=== PATIENT | male | born 1960 | race Native Hawaiian/Other Pacific Islander ===

== ENCOUNTER 2017-06-14 08:13 | Emergency (ER) | payer OTHER ==
[~2017-06-14] VITALS: Ht 175.3 cm; Wt 136.1 kg
[2017-06-14 08:18] VITALS: TEMP 98.6
[2017-06-14 09:35] LABS: PLATELET COUNT 559 K/uL (142-355)
[2017-06-14 10:55] VITALS: BP 170/78
== END 2017-06-14 10:55 | disposition home or self-care (01) ==
LOC: ED 08:13
PROVIDERS: Family Medicine
DX: N43.3 Hydrocele, unspecified (principal); I10 Essential (primary) hypertension; E11.65 Type 2 diabetes mellitus with hyperglycemia
CPT/HCPCS: 36415; 80053; 81000; 85027; 96374; 96375; 99284; J1885; J2405; J3490

== ENCOUNTER 2018-03-25 10:02 | Emergency (ER) | payer OTHER ==
[~2018-03-25] VITALS: Ht 175.3 cm; Wt 106.6 kg
[2018-03-25] MEDS ORDERED: HYDROCHLOROT12.5 M1 PO (11:04)
[2018-03-25] MEDS ORDERED: METO50TA27 PO (11:04)
[2018-03-25 11:09] LABS: PLATELET COUNT 853 K/uL (142-355)
[2018-03-25 13:45] VITALS: BP 156/81; TEMP 98.7
[2018-03-25 13:45] LABS: PLATELET COUNT 591 K/uL (142-355)
== END 2018-03-25 13:45 | disposition home or self-care (01) ==
LOC: ED 10:02
DX: R51 Headache (principal); I10 Essential (primary) hypertension; H70.13 Chronic mastoiditis, bilateral; I44.4 Left anterior fascicular block; I45.81 Long QT syndrome
CPT/HCPCS: 36415; 80053; 81000; 85027; 93005; 99283

== ENCOUNTER 2018-07-15 08:03 | Outpatient (CLI) | payer OTHER ==
[~2018-07-15 08:03] MED LIST: HYDROCHLOROT12.5 M1 PO; METO50TA27 PO
[2018-07-15 08:28] LABS: PLATELET COUNT 478 K/uL (142-355)
== END 2018-07-15 20:19 | disposition home or self-care (01) ==
LOC: LABW 08:03
PROVIDERS: Internal Medicine
DX: I12.9 Hypertensive chronic kidney disease with stage 1 through stage 4 chronic kidney disease, or unspecified chronic kidney disease (principal); N18.3 Chronic kidney disease, stage 3 (moderate)
CPT/HCPCS: 36415; 80048; 81000; 82040; 82570; 83883; 84100; 84155; 84550; 85027; 86038

== ENCOUNTER → 2018-08-26 | Outpatient (CLI) | payer OTHER ==
[2018-08-26 08:28] LABS: POTASSIUM 4.8 mmol/L (3.6-5.2)
[2018-08-26 08:30] LABS: PLATELET COUNT 463 K/uL (142-355)
== END ==
LOC: LABW 07:13
PROVIDERS: Physician Assistant
DX: N17.8 Other acute kidney failure (principal); N18.3 Chronic kidney disease, stage 3 (moderate)
CPT/HCPCS: 36415; 80048; 82040; 82570; 84100; 84155; 84550; 85027; 86038

== ENCOUNTER 2020-03-08 09:02 | Outpatient (CLI) | payer OTHER ==
[2020-03-08 09:37] LABS: POTASSIUM 4.6 mmol/L (3.6-5.2)
== END 2020-03-08 21:37 | disposition home or self-care (01) ==
LOC: LABW 09:02
PROVIDERS: ATTEND Nurse Practitioner Family
DX: E87.5 Hyperkalemia (principal)
CPT/HCPCS: 36415; 80048; 82040; 84100; 84550

== ENCOUNTER 2020-03-23 08:40 | Outpatient (CLI) | payer OTHER | END 2020-03-23 21:40 | disposition home or self-care (01) | LOC: US 08:40 | PROVIDERS: ATTEND Internal Medicine | DX: N18.4 Chronic kidney disease, stage 4 (severe) (principal); N17.9 Acute kidney failure, unspecified ==

== ENCOUNTER 2020-05-17 09:27 | Outpatient (CLI) | payer OTHER ==
[2020-05-17 09:43] LABS: PLATELET COUNT 367 K/uL (142-355)
[2020-05-17 09:48] LABS: POTASSIUM 5.2 mmol/L (3.6-5.2)
== END 2020-05-17 19:19 | disposition home or self-care (01) ==
LOC: LABW 09:27
PROVIDERS: ATTEND Internal Medicine
DX: I12.9 Hypertensive chronic kidney disease with stage 1 through stage 4 chronic kidney disease, or unspecified chronic kidney disease (principal); N18.9 Chronic kidney disease, unspecified
CPT/HCPCS: 36415; 80069; 85027

== ENCOUNTER 2020-08-05 08:05 | Outpatient (CLI) | payer OTHER ==
[2020-08-05 08:22] LABS: PLATELET COUNT 471 K/uL (142-355)
[2020-08-05 08:31] LABS: POTASSIUM 5.1 mmol/L (3.6-5.2)
== END 2020-08-05 22:00 | disposition home or self-care (01) ==
LOC: LABW 08:05
PROVIDERS: ATTEND Internal Medicine
DX: I12.9 Hypertensive chronic kidney disease with stage 1 through stage 4 chronic kidney disease, or unspecified chronic kidney disease (principal); E11.9 Type 2 diabetes mellitus without complications; N20.0 Calculus of kidney; E78.2 Mixed hyperlipidemia; N18.32 Chronic kidney disease, stage 3b
CPT/HCPCS: 36415; 80061; 80069; 83036; 85027

== ENCOUNTER 2020-08-17 07:59 | Outpatient (CLI) | payer OTHER ==
[2020-08-17 08:50] LABS: PLATELET COUNT 424 K/uL (142-355)
[2020-08-17 09:52] LABS: POTASSIUM 6.2 mmol/L (3.6-5.2)
== END 2020-08-17 22:39 | disposition home or self-care (01) ==
LOC: LABW 07:59
PROVIDERS: ATTEND Family Medicine
DX: E11.9 Type 2 diabetes mellitus without complications (principal); I10 Essential (primary) hypertension; E78.49 Other hyperlipidemia
CPT/HCPCS: 36415; 80053; 80061; 82043; 82272; 83036; 84153; 85027

== ENCOUNTER 2020-08-19 12:29 | Outpatient (CLI) | payer OTHER ==
[2020-08-19 12:56] LABS: POTASSIUM 5.8 mmol/L (3.6-5.2)
== END 2020-08-19 22:46 | disposition home or self-care (01) ==
LOC: LABW 12:29
PROVIDERS: ATTEND Family Medicine
DX: E87.5 Hyperkalemia (principal)
CPT/HCPCS: 36415; 80048

== ENCOUNTER 2020-10-29 11:19 | Outpatient (CLI) | payer OTHER | END 2020-10-29 19:06 | disposition home or self-care (01) | LOC: RAD 11:19 | PROVIDERS: ATTEND Nurse Practitioner Family | DX: J15.6 Pneumonia due to other Gram-negative bacteria (principal) ==

== ENCOUNTER 2021-02-25 08:55 | Outpatient (CLI) | payer OTHER | END 2021-02-25 19:26 | disposition home or self-care (01) | LOC: RAD 08:55 | PROVIDERS: ATTEND Internal Medicine | DX: H91.93 Unspecified hearing loss, bilateral (principal); I25.2 Old myocardial infarction; N18.9 Chronic kidney disease, unspecified; E11.9 Type 2 diabetes mellitus without complications; E78.00 Pure hypercholesterolemia, unspecified; M25.562 Pain in left knee; M25.561 Pain in right knee; I12.9 Hypertensive chronic kidney disease with stage 1 through stage 4 chronic kidney disease, or unspecified chronic kidney disease ==

== ENCOUNTER 2021-07-19 15:43 | Outpatient (CLI) | payer OTHER | END 2021-07-19 19:12 | disposition home or self-care (01) | LOC: LAB 15:43 | PROVIDERS: ATTEND Nurse Practitioner Family | DX: E87.5 Hyperkalemia (principal) | CPT/HCPCS: 84132 ==

== ENCOUNTER 2021-10-02 13:36 | Inpatient (IN) | payer OTHER ==
[2021-10-02] VITALS (7 sets, daily range): BP systolic 132–184; BP diastolic 59–93; TEMP 98.1–98.3; Ht 175.3 cm; Wt 116.3 kg
[~2021-10-02] VITALS: Ht 175.3 cm; Wt 116.3 kg
[2021-10-02] MEDS ORDERED: AMLODIPINE BESYLATE PO (13:53)
[2021-10-02] MEDS ORDERED: SIMV20TA2 PO (13:53)
[2021-10-02] MEDS ORDERED: ALPR0.5T24 PO ×3 (13:53→18:30)
[2021-10-02 13:54] LABS: PLATELET COUNT 305 K/uL (142-355)
[2021-10-02] MEDS ORDERED: HYDRALAZINE50 MG PO (13:54)
[2021-10-02] MEDS ORDERED: TRAMADOL HYDROC50 MG PO (13:54)
[2021-10-02] MEDS ORDERED: FURO20TA67 PO ×2 (13:55→18:31)
[2021-10-02] MEDS ORDERED: CARV25TA PO (13:55)
[2021-10-02] MEDS ORDERED: SODI650T PO (13:56)
[2021-10-02] MEDS ORDERED: POTA10CA3 PO (13:57)
[2021-10-02] MEDS ORDERED: DIPH50CA30 PO (13:57)
[2021-10-02] MEDS ORDERED: TAMS0.4C PO (14:00)
[2021-10-02] MEDS ORDERED: PROAIR HFA INH (14:01)
[2021-10-02 14:15] LABS: PARTIAL THROMBOPLASTIN TIME 19.8 SECONDS (24.5-33.6)
[2021-10-02] MEDS ORDERED: TRAM50TA PO (18:32)
[2021-10-03] VITALS: BP 143/69; TEMP 98
[2021-10-03 04:00] VITALS: BP 141/62; TEMP 98.6
[2021-10-03 05:25] LABS: PLATELET COUNT 292 K/uL (142-355)
[2021-10-03 05:45] LABS: POTASSIUM 4.5 mmol/L (3.6-5.2)
[2021-10-03 08:00] VITALS: BP 150/68; TEMP 98.2
[2021-10-03 12:06] VITALS: BP 168/76; TEMP 98.7
[2021-10-03 15:55] VITALS: BP 170/67; TEMP 97.3
[2021-10-03 20:00] VITALS: BP 184/83; TEMP 98.1
[2021-10-04] VITALS: BP 136/58; TEMP 97.8
[2021-10-04 04:00] VITALS: BP 143/64; TEMP 98.5
[2021-10-04 05:49] LABS: PLATELET COUNT 320 K/uL (142-355)
[2021-10-04 06:08] LABS: POTASSIUM 4.3 mmol/L (3.6-5.2)
[2021-10-04 08:00] VITALS: BP 165/75; TEMP 97.8
[2021-10-04] MEDS ORDERED: BUDE1AER5 INH (09:38)
[2021-10-04] MEDS ORDERED: PRED20TA27 PO (09:39)
[2021-10-04] MEDS ORDERED: LEVAQUIN250 MG PO (09:40)
[2021-10-04 12:00] VITALS: BP 169/76; TEMP 97.9
== END 2021-10-04 13:30 | disposition home or self-care (01) | DRG 202 ==
LOC: ED 13:36 → MED/SURG 15:00 → UNDODEPER 10-03 16:00 → MED/SURG 10-04 13:30
PROVIDERS: ADMIT Hospitalist; ATTEND Internal Medicine
DX: J45.901 Unspecified asthma with (acute) exacerbation (principal); J96.01 Acute respiratory failure with hypoxia; G47.33 Obstructive sleep apnea (adult) (pediatric); I95.1 Orthostatic hypotension; R60.0 Localized edema; I13.0 Hypertensive heart and chronic kidney disease with heart failure and stage 1 through stage 4 chronic kidney disease, or unspecified chronic kidney disease; N18.4 Chronic kidney disease, stage 4 (severe); I50.9 Heart failure, unspecified
CPT/HCPCS: 36415; 36600; 80053; 80307; 80320; 81002; 82550; 82805; 83735; 83880; 84484; 85027; 85610; 85730; 87635; 93005; 94664; 94760; 96374; 96375; 99284; J1956; J1650; J1815; J1885; J1940; J2270; J2405; J2920; J2930; J3490; U0003

== ENCOUNTER 2022-05-16 10:47 | Outpatient (CLI) | payer OTHER ==
[~2022-05-16 10:47] MED LIST changes: +ALPR0.5T24 PO; +AMLODIPINE BESYLATE PO; +BUDE1AER5 INH; +CARV25TA PO; +DIPH50CA30 PO; +FURO20TA67 PO; +HYDRALAZINE50 MG PO; +LEVAQUIN250 MG PO; +POTA10CA3 PO; +PRED20TA27 PO; +PROAIR HFA INH; +SIMV20TA2 PO; +SODI650T PO; +TAMS0.4C PO; +TRAM50TA PO; +TRAMADOL HYDROC50 MG PO
== END 2022-05-16 20:31 | disposition home or self-care (01) ==
LOC: RAD 10:47
PROVIDERS: ATTEND Nurse Practitioner Family
DX: M25.562 Pain in left knee (principal); M25.462 Effusion, left knee

== ENCOUNTER 2022-06-27 11:03 | Inpatient (IN) | payer OTHER ==
[~2022-06-27] VITALS: Ht 175.3 cm; Wt 109.8 kg
[2022-06-27 11:08] VITALS: BP 144/58; TEMP 98.1
[2022-06-27 11:33] LABS: PLATELET COUNT 433 K/uL (142-355)
[2022-06-27 11:46] LABS: POTASSIUM 2.6 mmol/L (3.6-5.2)
[2022-06-27 13:10] VITALS: BP 148/67; TEMP 97.8
[2022-06-27 13:30] VITALS: BP 148/67; TEMP 97.8; Ht 175.3 cm; Wt 109.8 kg
[2022-06-27] MEDS ORDERED: ALPR0.5T24 PO (15:51)
[2022-06-27] MEDS ORDERED: LISI5TAB10 PO (15:52)
[2022-06-27] MEDS ORDERED: TAMS0.4C PO (15:53)
[2022-06-27] MEDS ORDERED: LAXATIVE PO (15:55)
[2022-06-27] MEDS ORDERED: LOKELMA10 GM PO (15:55)
[2022-06-27] MEDS ORDERED: HYDRALAZINE50 MG PO (16:04)
[2022-06-27 20:00] VITALS: BP 164/65; TEMP 98.3
[2022-06-27 22:28] LABS: POTASSIUM 2.3 mmol/L (3.6-5.2)
[2022-06-28] VITALS (7 sets, daily range): BP systolic 123–165; BP diastolic 48–84; TEMP 97.9–98.4
[2022-06-28 05:31] LABS: PLATELET COUNT 420 K/uL (142-355)
[2022-06-28 05:42] LABS: POTASSIUM 2.2 mmol/L (3.6-5.2)
[2022-06-29 03:51] VITALS: BP 139/63; TEMP 98.6
[2022-06-29 07:07] LABS: PLATELET COUNT 409 K/uL (142-355)
[2022-06-29 08:00] VITALS: BP 173/92; TEMP 98.8
[2022-06-29 12:00] VITALS: BP 169/74; TEMP 98.3
[2022-06-29 16:00] VITALS: BP 161/70; TEMP 98.4
[2022-06-29 19:45] VITALS: BP 129/58; TEMP 97.9
[2022-06-29 23:30] VITALS: BP 142/61; TEMP 97.7
[2022-06-30 03:39] VITALS: BP 143/63; TEMP 97.8
[2022-06-30 07:36] VITALS: BP 133/54; TEMP 97.5
[2022-06-30 07:57] LABS: PLATELET COUNT 401 K/uL (142-355)
[2022-06-30 08:08] LABS: POTASSIUM 3.2 mmol/L (3.6-5.2)
[2022-06-30 12:00] VITALS: BP 136/56; TEMP 98.3
[2022-06-30 16:00] VITALS: BP 154/65; TEMP 97.5
== END 2022-06-30 20:27 | disposition short-term general hospital (02) | DRG 193 ==
LOC: ED 11:03 → MED/SURG 12:10
PROVIDERS: Internal Medicine; ADMIT Emergency Medicine; ATTEND Internal Medicine
DX: J18.9 Pneumonia, unspecified organism (principal); J96.90 Respiratory failure, unspecified, unspecified whether with hypoxia or hypercapnia; N18.4 Chronic kidney disease, stage 4 (severe); Z87.891 Personal history of nicotine dependence; D72.828 Other elevated white blood cell count; I50.9 Heart failure, unspecified; E87.6 Hypokalemia; J44.9 Chronic obstructive pulmonary disease, unspecified; N40.0 Benign prostatic hyperplasia without lower urinary tract symptoms; I12.9 Hypertensive chronic kidney disease with stage 1 through stage 4 chronic kidney disease, or unspecified chronic kidney disease; I11.0 Hypertensive heart disease with heart failure; Z99.81 Dependence on supplemental oxygen; N17.8 Other acute kidney failure; R73.9 Hyperglycemia, unspecified
CPT/HCPCS: 36415; 36600; 80048; 80053; 82805; 83735; 83880; 84100; 84484; 85027; 85379; 87040; 87635; 93005; 94640; 94660; 94664; 94760; 96361; 96365; 96366; 99284; J0456; J0696; J1650; J1940; J2543; J3370; J3475; U0003

== ENCOUNTER 2022-07-08 02:27 | Emergency (ER) | payer OTHER ==
[~2022-07-08] VITALS: Ht 175.3 cm; Wt 99.8 kg
[2022-07-08 02:27] VITALS: TEMP 97.8
[~2022-07-08 02:27] MED LIST changes: +LAXATIVE PO; +LISI5TAB10 PO; +LOKELMA10 GM PO
[2022-07-08 02:57] LABS: PLATELET COUNT 541 K/uL (142-355)
[2022-07-08 03:06] LABS: POTASSIUM 4.1 mmol/L (3.6-5.2)
[2022-07-08 07:00] VITALS: BP 130/66
== END 2022-07-08 07:30 | disposition home or self-care (01) ==
LOC: ED 02:27
PROVIDERS: Emergency Medicine
DX: I50.9 Heart failure, unspecified (principal); F41.9 Anxiety disorder, unspecified
CPT/HCPCS: 36415; 36600; 80053; 82805; 83880; 84484; 85027; 93005; 94660; 96374; 99284; J3490

== ENCOUNTER 2022-07-11 17:26 | Emergency (ER) | payer OTHER ==
[~2022-07-11] VITALS: Ht 175.3 cm; Wt 100.7 kg
[2022-07-11 17:30] VITALS: BP 159/65; TEMP 97.7
== END 2022-07-11 17:52 | disposition home or self-care (01) ==
LOC: ED 17:26
DX: R33.9 Retention of urine, unspecified (principal); Z46.89 Encounter for fitting and adjustment of other specified devices
CPT/HCPCS: 99282

== ENCOUNTER 2022-07-16 11:51 | Emergency (ER) | payer OTHER ==
[~2022-07-16] VITALS: Ht 175.3 cm; Wt 113.4 kg
[2022-07-16 11:59] VITALS: TEMP 97.5
[2022-07-16 12:36] LABS: PLATELET COUNT 363 K/uL (142-355)
[2022-07-16 12:40] LABS: POTASSIUM 4.8 mmol/L (3.6-5.2)
[2022-07-16 12:44] LABS: PARTIAL THROMBOPLASTIN TIME 30.9 SECONDS (23.9-36.7)
[2022-07-16 13:30] VITALS: BP 188/84
== END 2022-07-16 16:20 | disposition short-term general hospital (02) ==
LOC: ED 11:51
PROVIDERS: Family Medicine
DX: J96.00 Acute respiratory failure, unspecified whether with hypoxia or hypercapnia (principal); N18.9 Chronic kidney disease, unspecified; I50.9 Heart failure, unspecified
CPT/HCPCS: 36591; 36600; 51702; 80053; 80307; 81000; 82150; 82550; 82805; 83605; 83690; 83880; 84484; 85027; 85610; 85730; 87040; 87077; 87185; 87186; 87205; 93005; 94660; 96374; 99285; J3490

== ENCOUNTER 2022-09-08 15:24 | Emergency (ER) | payer OTHER ==
[~2022-09-08] VITALS: Ht 175.3 cm; Wt 91.6 kg
[2022-09-08 15:24] VITALS: TEMP 97.2
[2022-09-08 16:00] LABS: PLATELET COUNT 431 K/uL (142-355)
[2022-09-08 16:09] LABS: POTASSIUM 5.5 mmol/L (3.6-5.2)
[2022-09-08 22:30] VITALS: BP 149/77
== END 2022-09-08 22:45 | disposition short-term general hospital (02) ==
LOC: ED 15:24
PROVIDERS: Family Medicine
DX: N17.9 Acute kidney failure, unspecified (principal); R06.00 Dyspnea, unspecified; Z87.891 Personal history of nicotine dependence
CPT/HCPCS: 36415; 80053; 82805; 83735; 83880; 84100; 85027; 94664; 96361; 96365; 96375; 99284; J2060; J3370

== ENCOUNTER 2022-10-26 08:47 | Outpatient (CLI) | payer OTHER | END 2022-10-26 19:06 | disposition home or self-care (01) | LOC: CT 08:47 | PROVIDERS: ATTEND Nurse Practitioner Family | DX: Z87.891 Personal history of nicotine dependence (principal) ==

== ENCOUNTER 2022-11-15 22:04 | Emergency (ER) | payer OTHER ==
[~2022-11-15] VITALS: Ht 175.3 cm; Wt 90.7 kg
[2022-11-15 22:56] LABS: PLATELET COUNT 343 K/uL (142-355)
[2022-11-15 23:07] LABS: POTASSIUM 4.5 mmol/L (3.6-5.2)
[2022-11-15 23:20] VITALS: BP 134/82; TEMP 97.5
== END 2022-11-15 23:20 | disposition home or self-care (01) ==
LOC: ED 22:04
PROVIDERS: Family Medicine
DX: I10 Essential (primary) hypertension (principal); F41.9 Anxiety disorder, unspecified
CPT/HCPCS: 36415; 80053; 85027; 99283

== ENCOUNTER 2022-12-18 08:53 | Outpatient (CLI) | payer OTHER ==
[2022-12-18 09:16] LABS: PLATELET COUNT 425 K/uL (142-355)
[2022-12-18 09:19] LABS: POTASSIUM 4.9 mmol/L (3.6-5.2)
== END 2022-12-18 19:00 | disposition home or self-care (01) ==
LOC: LABW 08:53
PROVIDERS: ATTEND Internal Medicine
DX: I12.0 Hypertensive chronic kidney disease with stage 5 chronic kidney disease or end stage renal disease (principal); N18.5 Chronic kidney disease, stage 5
CPT/HCPCS: 36415; 80048; 82040; 82570; 84100; 84156; 84550; 85027